=== PATIENT | female | born 1960 | race Caucasian/White ===

== ENCOUNTER → 2017-05-03 | Outpatient (CLI) | payer MEDICARE, MEDICAID ==
--- NOTE | 2017-05-03 13:56 | EKG REPORT ---
SEVERITY:- OTHERWISE NORMAL ECG - SINUS TACHYCARDIA RIGHT AXIS DEVIATION : Confirmed by: Estrella Zaldivar 03-May-2017 13:56:06
[2017-05-03 14:07] LABS: ABSOLUTE EOSINOPHILS # (AUTO) 0.3 10^3/uL (0.0-0.6); ABSOLUTE LYMPHOCYTES (AUTO) 3.1 10^3/uL (0.5-4.7); ABSOLUTE MONOCYTES (AUTO) 0.6 10^3/uL (0.1-1.4); BASOPHILS % (AUTO) 0.5 % (0-2); EOSINOPHILS % (AUTO) 2.9 % (0-6); HEMATOCRIT 44.7 % (36.0-47.0); HEMOGLOBIN 15.3 g/dL (12.0-15.5); HGB HCT DIFFERENCE 1.2; LYMPHOCYTES % (AUTO) 34.2 % (13-45); MEAN CORPUSCULAR HEMOGLOBIN 31.6 pg (27.0-33.4); MEAN CORPUSCULAR HGB CONC 34.2 g/dL (32.0-36.0); MEAN CORPUSCULAR VOLUME 93 fl (80-97); MONOCYTES % (AUTO) 6.3 % (3-13); RED BLOOD COUNT 4.83 10^6/uL (3.72-5.28); RED CELL DISTRIBUTION WIDTH 13.2 % (11.5-14.0); SEGMENTED NEUTROPHILS % (AUTO) 56.1 % (42-78); WHITE BLOOD COUNT 8.9 10^3/uL (4.0-10.5)
--- NOTE | 2017-05-03 14:09 | RADIOLOGY REPORT (SQ) ---
EXAM DESCRIPTION: CHEST PA/LATERAL COMPLETED DATE/TIME: 05/03/2017 1:42 pm REASON FOR STUDY: PRE OP COMPARISON: None. EXAM PARAMETERS: NUMBER OF VIEWS: two views TECHNIQUE: Digital Frontal and Lateral radiographic views of the chest acquired. RADIATION DOSE: NA LIMITATIONS: none FINDINGS: LUNGS AND PLEURA: No opacities, masses or pneumothorax. No pleural effusion. MEDIASTINUM AND HILAR STRUCTURES: No masses or contour abnormalities. HEART AND VASCULAR STRUCTURES: Heart normal size. No evidence for failure. BONES: No acute findings. HARDWARE: None in the chest. OTHER: No other significant finding. IMPRESSION: NO SIGNIFICANT RADIOGRAPHIC FINDING IN THE CHEST. TECHNICAL DOCUMENTATION: JOB ID: [id number] [employer]- All Rights Reserved
[2017-05-03 14:10] LABS: APPEARANCE,URINE SLIGHTLY-CLOUDY; BILIRUBIN,URINE NEGATIVE (NEGATIVE); GLUCOSE, URINE NEGATIVE (NEGATIVE); KETONES,URINE NEGATIVE (NEGATIVE); LEUKOCYTE ESTERASE,URINE TRACE (NEGATIVE); NITRITE,URINE NEGATIVE (NEGATIVE); PROTEIN,URINE NEGATIVE (NEGATIVE); URINE SPECIFIC GRAVITY 1.011; UROBILINOGEN,URINE NEGATIVE mg/dL (<2.0)
[2017-05-03 14:29] LABS: ANION GAP 12 (5-19); BLOOD UREA NITROGEN 13 mg/dL (7-20); CALCIUM 9.6 mg/dL (8.4-10.2); CARBON DIOXIDE 32 mmol/L (22-30); CHLORIDE 97 mmol/L (98-107); CREATININE RESULT 0.67 mg/dL (0.52-1.25); GLUCOSE 130 mg/dL (75-110); POTASSIUM 4.5 mmol/L (3.6-5.0); SODIUM 140.6 mmol/L (137-145)
== END ==
LOC: OD 12:47
PROVIDERS: ATTEND Orthopaedic Surgery
DX: Z01.818 Encounter for other preprocedural examination (principal)
CPT/HCPCS: 36415; 71020; 80048; 81001; 83036; 85025; 93005; 93010

== ENCOUNTER 2017-05-27 05:28 | Inpatient (IN) | payer MEDICARE, MEDICAID ==
[~2017-05-27 05:28] MED LIST: BUPIVACAINE INJ/PF LIPOSOME/PF 266 MG/20 ML SDV INJ PRN; CEFAZOLIN 2 GM/D5W RTU 2 GM/50 ML RTUPB IV PRN; IBUPROFEN 800 MG in NORMAL SALINE 250 ML IV PRN; LACTATED RINGERS 1000 ML IV PRN; LANSOPRAZOLE 15 MG TAB.RAP.DR PO PRN; LIDOCAINE 0.5% INJ-PF (5 MG/ML) 50 ML SDV SUBCUT PRN; OXYCODONE HCL SR 10 MG TABLET PO PRN; RINGERS SOLUTION,LACTATED 1,000 ML IV PRN
[2017-05-27] MEDS ORDERED: THROMBIN (BOVINE) 5000 UNIT EPITAXIS KIT ONE (06:55)
[2017-05-27] MEDS ORDERED: THROMBIN (BOVINE) TOPICAL 20000 UNIT VIAL ONE (06:55)
[2017-05-27] MEDS ORDERED: BUPIVACAINE INJ/PF LIPOSOME/PF 266 MG/20 ML SDV ONE (06:55)
[2017-05-27] MEDS ORDERED: KETAMINE HCL INJ 500 MG/10 ML VIAL ONE (07:15)
[2017-05-27] MEDS ORDERED: FENTANYL CITRATE INJ/PF 100 MCG/2 ML AMPUL ONE ×2 (07:15)
[2017-05-27] MEDS ORDERED: ONDANSETRON HCL INJ/PF 4 MG/2 ML SDV ONE (07:16)
[2017-05-27] MEDS ORDERED: TRANEXAMIC ACID INJ/PF 1,000 MG/10 ML SDV IV ONE ×3 (07:16→11:30)
[2017-05-27] MEDS ORDERED: DEXAMETHASONE SOD PHOSPHATE INJ 4 MG/1 ML VIAL ONE (07:16)
[2017-05-27] MEDS ORDERED: MIDAZOLAM 2 MG/2 ML INJ ONE (07:16)
[2017-05-27] MEDS ORDERED: PROPOFOL INJ 200 MG/20 ML VIAL IV ONE ×2 (07:16→10:40)
[2017-05-27] MEDS ORDERED: HYDROMORPHONE HCL INJ/PF 2 MG/ML AMPULE ONE (07:17)
[2017-05-27] MEDS ORDERED: PROMETHAZINE HCL INJ 25 MG/1 ML VIAL IV PRN ×2 (09:51)
[2017-05-27] MEDS ORDERED: OXYCODONE-ACETAMINOPHEN 5-325 MG TABLET PO PRN ×2 (09:51)
[2017-05-27] MEDS ORDERED: FENTANYL CITRATE INJ/PF 100 MCG/2 ML AMPUL IV PRN ×3 (09:51)
[2017-05-27] MEDS ORDERED: MEPERIDINE HCL/PF INJ 25 MG/1 ML DISP.SYRIN IV PRN (09:51)
[2017-05-27] MEDS ORDERED: MORPHINE SULFATE 10 MG/ML INJ IV PRN (09:51)
[2017-05-27] MEDS ORDERED: DIPHENHYDRAMINE HCL 50 MG/ML VIAL IV PRN (09:51)
--- NOTE | 2017-05-27 10:13 | Operative Report ---
Operative Report DATE OF SURGERY: 05/27/17 PREOPERATIVE DIAGNOSIS: Left knee osteoarthritis POSTOPERATIVE DIAGNOSIS: Same OPERATION: Left total knee arthroplasty SURGEON: ANTHONY GENTILE ANESTHESIA: Spinal TISSUE REMOVED OR ALTERED: Bone cuts COMPLICATIONS: None ESTIMATED BLOOD LOSS: 30 mL INTRAOPERATIVE FINDINGS: As above PROCEDURE: Patient was brought to the operating room after receiving preoperative antibiotics. Patient received successfully a spinal anesthetic. Patient was placed in supine position with a bump on the left buttocks. Thigh tourniquet was applied and then the left lower extremity was prepped and draped in normal sterile surgical fashion. Timeout was done identifying the left knee at the correct site. Esmarch was used to exsanguinate the extremity and the tourniquet was inflated at 300 mmHg. Leg was placed in a legholder and a longitudinal incision was done over the left knee. Decision was taken down to the quadriceps tendon all way down to the tibial tubercle. After exposing the knee and securing the medial lateral flaps I did a medial parapatellar approach the knee and immediately received synovial fluid. I then proceeded to inderjit the patella and flexed the knee. Patient had osteoarthritis in the patellofemoral and medial compartment as expected. A medial release was done and then excision of the ACL PCL and medial and lateral meniscus were done. The knee was subluxed and then drill was used to expose the canal of the tibia. Intramedullary guide was applied and then we pin in place after measuring to off of the affected side. We proceeded then to pin the guide block and remove the intramedullary francisco javier and proceeded to do our tibial cut. This was removed and I turned my attention to the femur where I drilled and placed my intramedullary guide and secured the distal femoral guide block. Measured 8 mm and pinned it and then resected my distal condyle cut. This was removed and then we proceeded to actually measure the femur which was a 5. We used a 5 4-in -1 cutting block and proceeded to do my resection successfully. I then proceeded to use the block to do my cut for the post. I placed a trial femur 5 and then placed a trial 9 mm spacer with a 4-sized tibial tray. I had full extension and flexion and with a stable varus and valgus knee. The patella was also tracking nicely. At this point I proceeded then to do my resection of the patella which I took 9 mm off and then used a 32 mm to do my 3 post holes. I placed a trial offset patella and trialed the tracking which was excellent. Once I was satisfied with the trial components they were removed and we proceeded to then use both irrigation to clean the knee and mix cement and placed the final components. Final components were a size 4 tibial tray which is cemented successfully and this was done after preparing the tibial keel. I then proceeded to cement the 5 femur and placed a 9 mm trial spacer. The remaining cement was removed and cleaned off. There was no excess cement. I then proceeded to cement the patellar button and removed excess cement as well. Aricept was used and after 10 minutes the cement was hardened. The trial spacer was removed and the final 9 mm polyethylene spacer was applied. Prior to placing the spacer I did use Exparel to inject the posterior knee medial lateral aspects and anterior patella tendon and quadriceps tendon. At this point I used #1 Vicryl and used interrupted sutures to approximate the quadriceps tendon and capsule. Thrombin was used to place in the knee. I proceeded then to have my rehab assistant close the something is fat with 0 Vicryl and tissue with 2-0 Vicryl and then do a running 4-0 Monocryl subcuticular stitch. We proceeded to Operate Pl., Dermabond followed by Steri- Strips and then a OpSite dressing and then overwrapped the knee with soft roll and Benji bandage. Tourniquet was let down at 85 minutes and the patient was successfully undraped and transferred to PACU in stable condition.
[2017-05-27] MEDS ORDERED: ESMOLOL HCL INJ/PF 100 MG/10 ML SDV IV ONE (10:36)
[2017-05-27] MEDS ORDERED: ACETAMINOPHEN 325 MG TABLET PO PRN (10:41)
[2017-05-27] MEDS ORDERED: ONDANSETRON HCL INJ/PF 4 MG/2 ML SDV IV PRN (10:41)
[2017-05-27] MEDS ORDERED: POTASSI CL 20 MEQ/D5-1/2NS 1L 1,000 ML IV PRN (10:41)
--- NOTE | 2017-05-27 11:24 | RADIOLOGY REPORT (SQ) ---
EXAM DESCRIPTION: KNEE LEFT 2 VIEWS COMPLETED DATE/TIME: 05/27/2017 11:16 am REASON FOR STUDY: Post OP -Long Cassette in PACU M17.12 UNILATERAL PRIMARY OSTEOARTHRITIS, LEFT KNE E COMPARISON: None. NUMBER OF VIEWS: Two views. TECHNIQUE: AP and lateral radiographic images acquired of the left knee. LIMITATIONS: None. FINDINGS: MINERALIZATION: Normal. BONES: Left knee arthroplasty in good position. JOINT: No effusion. SOFT TISSUES: No soft tissue swelling. No radio-opaque foreign body. OTHER: No other significant finding. IMPRESSION: Left knee arthroplasty. TECHNICAL DOCUMENTATION: JOB ID: [id number] [employer]- All Rights Reserved
[2017-05-27] MEDS: CEFAZOLIN 2 GM/D5W RTU 2 GM/50 ML RTUPB IV SCH ×3 (12:43→23:59)
[2017-05-27] MEDS: OXYCODONE HCL IR 5 MG TABLET PO PRN ×4 (14:42→23:13)
[2017-05-27] MEDS: IBUPROFEN 800 MG in NORMAL SALINE 250 ML IV SCH (17:32)
[2017-05-27] MEDS: RIVAROXABAN 10 MG TABLET PO SCH (21:47)
[2017-05-27] MEDS ORDERED: VANCOMYCIN HCL 1,000 MG in DEXTROSE 5%-WATER 250 ML IV ONE (22:30)
[2017-05-28] MEDS: IBUPROFEN 800 MG in NORMAL SALINE 250 ML IV SCH ×3 (02:17→18:33)
[2017-05-28] MEDS: OXYCODONE HCL IR 5 MG TABLET PO PRN ×6 (03:42→20:20)
[2017-05-28 05:32] LABS: HEMATOCRIT 38.8 % (36.0-47.0); HEMOGLOBIN 13.4 g/dL (12.0-15.5); HGB HCT DIFFERENCE 1.4; MEAN CORPUSCULAR HEMOGLOBIN 31.9 pg (27.0-33.4); MEAN CORPUSCULAR HGB CONC 34.6 g/dL (32.0-36.0); MEAN CORPUSCULAR VOLUME 92 fl (80-97); RED CELL DISTRIBUTION WIDTH 13.1 % (11.5-14.0)
[2017-05-28 05:50] LABS: ANION GAP 12 (5-19); BLOOD UREA NITROGEN 9 mg/dL (7-20); CALCIUM 8.6 mg/dL (8.4-10.2); CARBON DIOXIDE 25 mmol/L (22-30); CHLORIDE 100 mmol/L (98-107); CREATININE RESULT 0.55 mg/dL (0.52-1.25); GLUCOSE 298 mg/dL (75-110); POTASSIUM 4.1 mmol/L (3.6-5.0); SODIUM 137.4 mmol/L (137-145)
[2017-05-28] MEDS: CEFAZOLIN 2 GM/D5W RTU 2 GM/50 ML RTUPB IV SCH ×3 (06:08→18:24)
[2017-05-28] MEDS ORDERED: GLUCAGON,HUMAN RECOMB 1 MG INJ IM PRN (10:20)
[2017-05-28] MEDS ORDERED: DEXTROSE 40% GEL 15 GM TUBE PO PRN (10:20)
[2017-05-28] MEDS ORDERED: DEXTROSE 50%-WATER SYRINGE 25 GM/50 ML DOSE IV PRN (10:20)
[2017-05-28] MEDS ORDERED: DEXTROSE 50%-WATER SYRINGE 12.5 GM/25 ML DOSE IV PRN (10:20)
[2017-05-28] MEDS ORDERED: DEXTROSE 40% GEL 15 GM TUBE X 2 PO PRN (10:20)
[2017-05-28] MEDS: INSULIN LISPRO 100 UNIT/ML 3 ML VIAL SUBCUT PRN ×3 (12:00→23:05)
[2017-05-28] MEDS ORDERED: MELOXICAM 15 MG TABLET PO ONE (12:30)
[2017-05-28] MEDS ORDERED: VENLAFAXINE HCL 75 MG CAP.SR.24H PO ONE (12:30)
[2017-05-28] MEDS ORDERED: CYCLOBENZAPRINE HCL 10 MG TABLET PO ONE (12:30)
[2017-05-28] MEDS ORDERED: CLONAZEPAM 1 MG TABLET PO ONE (12:30)
[2017-05-28] MEDS ORDERED: ARIPIPRAZOLE 5 MG TABLET PO ONE (12:30)
[2017-05-28] MEDS ORDERED: SITAGLIPTIN PHOSPHATE 50 MG TABLET PO ONE (12:30)
--- NOTE | 2017-05-28 15:25 | PDOC PROGRESS REPORT ---
Subjective Progress Note for:: 05/28/17 Subjective:: Patient states she worked with therapy and ambulated 70 steps. She also states she did stairs. Denies any numbness or tingling or paresthesias. Describes some pain but overall she states she is going to try her best to be ready to be discharged tomorrow Reason For Visit: LEFT KNEE ARTHRITIS STATUS POST KNEE ARTHROPLASTY Physical Exam Vital Signs: Temp Pulse Resp BP Pulse Ox 36.6 C 106 H 18 147/74 H 91 L 05/28/17 14:00 05/28/17 14:00 05/28/17 14:00 05/28/17 14:00 05/28/17 14:00 Intake & Output 05/27/17 05/28/17 05/29/17 06:59 06:59 06:59 Intake Total 0 7130 341 Output Total 5130 Balance 0 2000 341 Weight 100.7 kg 100.7 kg General appearance: PRESENT: no acute distress Adult Front & Back Image: 1 - Patient has Benji bandage wrapped around her knee and has soft calf. Range of motion is -10 of extension to about 70 of flexion. Results Laboratory Results: 05/28/17 04:42 05/28/17 04:42 05/28/17 05/28/17 04:42 04:42 WBC 11.0 H RBC 4.20 Hgb 13.4 Hct 38.8 MCV 92 MCH 31.9 MCHC 34.6 RDW 13.1 Plt Count 175 Sodium 137.4 Potassium 4.1 Chloride 100 Carbon Dioxide 25 Anion Gap 12 BUN 9 Creatinine 0.55 Est GFR ( Amer) > 60 Est GFR (Non-Af Amer) > 60 Glucose 298 H Calcium 8.6 Impressions: Knee X-Ray 05/27/17 10:43 IMPRESSION: Left knee arthroplasty. Status: Image reviewed by me Assessment & Plan - Plan Summary Plan Summary: Patient is postop day 1 from undergoing left total knee arthroplasty. Patient is doing very well. No issues overnight. We will continue physical therapy and weight-bear as tolerated and range of motion as tolerated. She continues to progress she can leave as early as tomorrow afternoon.
[2017-05-28] MEDS: METFORMIN HCL 500 MG TABLET PO SCH (18:23)
[2017-05-28] MEDS ORDERED: GLIMEPIRIDE 4 MG TABLET PO SCH (22:00)
[2017-05-28] MEDS ORDERED: TIOTROPIUM BROMIDE DPI 5 CAP/KIT (18 MCG/CAP) IH SCH (22:00)
[2017-05-28] MEDS ORDERED: SIMVASTATIN 40 MG TABLET PO SCH (22:00)
[2017-05-28] MEDS ORDERED: MONTELUKAST SODIUM 10 MG TABLET PO SCH (22:00)
[2017-05-28] MEDS ORDERED: TRAZODONE HCL 50 MG TABLET PO SCH (22:00)
[2017-05-28] MEDS: ALPRAZOLAM 0.5 MG TABLET PO SCH (22:29)
[2017-05-28] MEDS: RIVAROXABAN 10 MG TABLET PO SCH (22:30)
[2017-05-29] MEDS: OXYCODONE HCL IR 5 MG TABLET PO PRN ×5 (00:46→18:21)
[2017-05-29] MEDS: CEFAZOLIN 2 GM/D5W RTU 2 GM/50 ML RTUPB IV SCH ×4 (00:46→17:25)
[2017-05-29] MEDS: IBUPROFEN 800 MG in NORMAL SALINE 250 ML IV SCH ×2 (01:59→10:11)
[2017-05-29 05:39] LABS: HEMATOCRIT 35.4 % (36.0-47.0); HEMOGLOBIN 12.1 g/dL (12.0-15.5); HGB HCT DIFFERENCE 0.9; MEAN CORPUSCULAR HEMOGLOBIN 31.5 pg (27.0-33.4); MEAN CORPUSCULAR HGB CONC 34.1 g/dL (32.0-36.0); MEAN CORPUSCULAR VOLUME 92 fl (80-97); RED BLOOD COUNT 3.84 10^6/uL (3.72-5.28); RED CELL DISTRIBUTION WIDTH 13.5 % (11.5-14.0)
[2017-05-29] MEDS: METFORMIN HCL 500 MG TABLET PO SCH ×2 (08:28→17:24)
[2017-05-29] MEDS: INSULIN LISPRO 100 UNIT/ML 3 ML VIAL SUBCUT PRN ×3 (08:29→17:25)
[2017-05-29] MEDS: ALPRAZOLAM 0.5 MG TABLET PO SCH (09:55)
[2017-05-29] MEDS ORDERED: VENLAFAXINE HCL 75 MG CAP.SR.24H PO SCH (10:00)
[2017-05-29] MEDS ORDERED: (PENDING PHARMACY ID) (Clonazepam [Clonazepam] 0.5 MG) PO SCH (10:00)
[2017-05-29] MEDS ORDERED: CYCLOBENZAPRINE HCL 10 MG TABLET PO SCH ×3 (10:00→22:00)
[2017-05-29] MEDS ORDERED: (PENDING PHARMACY ID) (Linagliptin [Tradjenta] 5 MG) PO SCH (10:00)
[2017-05-29] MEDS ORDERED: MELOXICAM 15 MG TABLET PO SCH (10:00)
[2017-05-29] MEDS ORDERED: GLIMEPIRIDE 4 MG TABLET PO SCH (10:00)
[2017-05-29] MEDS ORDERED: SITAGLIPTIN PHOSPHATE 50 MG TABLET PO SCH (10:00)
[2017-05-29] MEDS ORDERED: SIMVASTATIN 40 MG TABLET PO SCH (10:00)
[2017-05-29] MEDS ORDERED: HYDROCODONE BITARTRATE 20 MG PO SCH (10:00)
[2017-05-29] MEDS ORDERED: (PENDING PHARMACY ID) (Glimepiride [Amaryl] 4 MG) PO SCH (10:00)
[2017-05-29] MEDS ORDERED: ARIPIPRAZOLE 5 MG TABLET PO SCH (10:00)
[2017-05-29] MEDS ORDERED: CLONAZEPAM 1 MG TABLET PO SCH (10:00)
[2017-05-29] MEDS ORDERED: (PENDING PHARMACY ID) (Aripiprazole [Aripiprazole] 10 MG) PO SCH (10:00)
--- NOTE | 2017-05-29 10:46 | PDOC DISCHARGE SUMMARY ---
General - Admit/Disc Date/PCP Admission Date/Primary Care Provider: 05/27/17 05:28 ANTHONY MARTINEZ MD Discharge Date: 05/29/17 - Discharge Diagnosis (1) Total knee replacement status Is this a current diagnosis for this admission?: Yes - Additional Information Resuscitation Status: Full Code Discharge Diet: As Tolerated Discharge Activity: No Driving - While taking narcotics, Keep Legs Elevated, No Lifting/Push/Pulling, Slowly Increase Activity, Walk Frequently Prescriptions: Rivaroxaban [Xarelto 10 mg Tablet] 10 mg PO QHS 14 Days #14 tablet Oxycodone HCl/Acetaminophen [Percocet 7.5-325 mg Tablet] 1 - 2 tab PO ASDIR PRN #60 tab PRN Reason: Home Medications: Alprazolam 0.5 mg PO BID 05/11/17 Aripiprazole 10 mg PO DAILY 05/11/17 Clonazepam 0.5 mg PO DAILY 05/11/17 Cyclobenzaprine HCl 10 mg PO DAILY 05/11/17 Insulin Degludec [Tresiba Flextouch U-200] 20 units SUBCUT DAILY 05/11/17 Linagliptin [Tradjenta] 5 mg PO DAILY 05/11/17 Liraglutide [Victoza 2-Panfilo] 1 dose SQ DAILY 05/11/17 Meloxicam 15 mg PO DAILY 05/11/17 Metformin HCl 1,000 mg PO BID 05/11/17 Montelukast Sodium 10 mg PO QHS 05/11/17 Simvastatin 40 mg PO DAILY 05/11/17 Tiotropium Climax [Spiriva Handihaler 18 mcg/dose (30 Dose)] 1 tab PO QHS 05/11 Trazodone HCl 50 mg PO QHS 05/11/17 Varenicline Tartrate [Chantix 1 mg Tablet] 1 mg PO BID 05/11/17 Venlafaxine HCl ER [Effexor Xr 75 mg Cap.sr] 225 mg PO DAILY 05/11/17 Glimepiride [Amaryl] 2 mg PO QHS 05/27/17 Glimepiride [Amaryl] 4 mg PO DAILY 05/27/17 Umeclidinium Climax [Incruse Ellipta] 1 puff IN QHS 05/27/17 Oxycodone HCl/Acetaminophen [Percocet 7.5-325 mg Tablet] 1 - 2 tab PO ASDIR PRN #60 tab 05/29/17 Rivaroxaban [Xarelto 10 mg Tablet] 10 mg PO QHS 14 Days #14 tablet 05/29/17 History of Present Illness Patient complains of: Left knee osteoarthritis History of Present Illness: TEDDY RUCKER is a 57 year old female who had been treated for her left knee osteoarthritis. She had combination of injections and therapy as well as bracing. Her pain continued to progress and limited her daily activity. Patient agreed and proceeded to have a left total knee arthroplasty on 2016. Her surgery was uneventful. No complications. Her vital signs were stable during the surgery and postoperatively. On postop day 1 patient had significant pain but participated with therapy and did send the feet with assistance. Range of motion is -10 to about 70. On postop day 2 today patient progressing further and is stable with ambulation with a walker. Dressing was removed and the OpSite with the Steri-Strips are intact clean dry with no bleeding. No drainage. Patient has postoperative swelling but no calf tenderness. She is neurovascular intact distally. She is passing gas and eating without issues. Patient was discharged today on postop day 2 with home health, walker, shower C and, bedside commode. She was discharged with Percocet and Xarelto. Patient instructed to follow-up in 10-14 days. She is instructed to return if there is any concerns. Hospital Course Hospital Course: Date of surgery 05/27/2017 was uneventful. Postop day 1 patient has some pain but vital signs were stable. She participate with therapy as instructed and did very well. Stop date to patient continued to progress. Her pain was better controlled. Patient is ready to be discharged to home with set up with home health and durable medical equipment. Patient instructed to follow-up in 2 weeks. Physical Exam Vital Signs: Temp Pulse Resp BP Pulse Ox 36.5 C 131 H 16 114/63 92 05/29/17 00:00 05/29/17 00:00 05/29/17 00:00 05/29/17 00:00 05/29/17 00:00 Intake & Output 05/28/17 05/29/17 05/30/17 06:59 06:59 06:59 Intake Total 7135 3629 Output Total 51 3300 Balance 2000 329 Weight 100.7 kg General appearance: PRESENT: no acute distress Head exam: PRESENT: atraumatic, normocephalic Eye exam: PRESENT: EOMI. ABSENT: nystagmus, periorbital swelling Respiratory exam: PRESENT: symmetrical, unlabored. ABSENT: tachypnea Pulses: PRESENT: +2 pedal pulses bilateral Vascular exam: PRESENT: normal capillary refill GI/Abdominal exam: PRESENT: soft. ABSENT: organolmegaly, rigid, tenderness Neurological exam: PRESENT: alert, awake, oriented to person, oriented to place , oriented to time, oriented to situation Adult Front & Back Image: 1 - Incision is dry clean and intact. Postoperative swelling appropriate. Soft calf. 5 out of 5 strength with sensation intact to light touch. Good dorsalis pedis pulse. The motion -10 of extension to about 80 of flexion. Results Laboratory Results: 05/29/17 05:13 05/28/17 04:42 05/29/17 05:13 WBC 9.0 RBC 3.84 Hgb 12.1 Hct 35.4 L MCV 92 MCH 31.5 MCHC 34.1 RDW 13.5 Plt Count 155 Impressions: Knee X-Ray 05/27/17 10:43 IMPRESSION: Left knee arthroplasty. Status: Image reviewed by me Plan Discharge Plan: 57-year-old female who underwent left total knee arthroplasty is being discharged today postop day 2. Her hospital stay and surgery was uneventful. She is instructed to weight-bear as tolerated and range of motion as tolerated. Prescriptions were provided at discharge for DVT prophylaxis with Xarelto Percocet for pain. She will also be set up with durable medical equipment. Follow-up in 2 weeks.
[2017-05-29 20:55] VITALS: BP 115/64
[2017-05-29] MEDS ORDERED: ALPRAZOLAM 0.5 MG TABLET PO SCH (22:00)
== END 2017-05-29 20:50 | disposition home health service (06) | DRG 470 ==
LOC: INOR 05:28 → 4S 11:40
PROVIDERS: ADMIT Orthopaedic Surgery; ATTEND Orthopaedic Surgery
PROC: 0SRD0J9 Replacement of Left Knee Joint with Synthetic Substitute, Cemented, Open Approach (ICD-10-PCS; principal; 2017-05-27 07:30)
DX: M17.12 Unilateral primary osteoarthritis, left knee (principal); E11.9 Type 2 diabetes mellitus without complications; E78.00 Pure hypercholesterolemia, unspecified; F17.200 Nicotine dependence, unspecified, uncomplicated; J44.9 Chronic obstructive pulmonary disease, unspecified; F41.9 Anxiety disorder, unspecified; F32.9 Major depressive disorder, single episode, unspecified; Z79.4 Long term (current) use of insulin; Z79.899 Other long term (current) drug therapy
CPT/HCPCS: 01402; 36415; 80048; 82962; 85027; 88304; 88311; 94799; C9290; G8978-GP; G8979-GP; J0690; J1100; J1170; J1741; J1815; J2250; J2405; J2704; J3010; J3370; J3480; J3490; J7050; J7060